=== PATIENT | male | born 1965 | race Caucasian/White ===

== ENCOUNTER 2021-01-14 08:34 | Inpatient (IN) ==
[2021-01-14] MEDS ORDERED: Naloxone 0.4 MG/ML INJ IVP PRN (11:13)
[2021-01-14] MEDS ORDERED: *HR* HYDROcodone/Acet 5/325 mg TABLET PO ONE (11:57)
[2021-01-14] MEDS ORDERED: *HR* HYDROcodone/Acet 5/325 mg TABLET PO PRN (12:08)
[2021-01-14] MEDS ORDERED: Ondansetron 4 MG/2 ML VIAL IVP PRN (12:09)
[2021-01-14] MEDS: Acetaminophen 325 MG TABLET PO PRN (19:29)
[2021-01-14] MEDS: Metoprolol 100 MG TABLET PO SCH (19:53)
[2021-01-14] MEDS: calcium polycarbophiL 625 MG TABLET PO SCH (19:54)
[2021-01-14] MEDS ORDERED: GI Cocktail 40 ML EACH PO ONE (23:28)
[2021-01-15 03:54] LABS: Basophils % 0.3 %; Eosinophils # 0.6 K/mcL (0.0-0.6); Eosinophils % 10.2 %; Hematocrit 37.8 % (37.5-50.1); Hemoglobin 12.6 g/dL (12.9-16.9); Immature Granulocytes % 0.3 % (0-4); Lymphocytes # 1.8 K/mcL (0.6-4.6); Lymphocytes % 29.1 %; Mean Corpuscular HGB Conc 33.3 g/dL (31.6-35.5); Mean Corpuscular Hemoglobin 32.1 pg (28.0-33.3); Mean Corpuscular Volume 96.4 fL (83.0-100.0); Monocytes # 0.6 K/mcL (0.0-1.3); Monocytes % 10.2 %; Neutrophils # 3.1 K/mcL (1.6-8.9); Platelet Count 230 K/mcL (140-400); Red Blood Count 3.92 M/mcL (4.19-5.50); Segmented Neutrophils % 49.9 %; White Blood Count 6.2 K/mcL (4.3-11.1)
[2021-01-15 04:14] LABS: BUN/Creatinine Ratio 12 (6-26); Blood Urea Nitrogen 11 mg/dL (6-20); Calcium 8.8 mg/dL (8.6-10.3); Carbon Dioxide 21 mEq/L (23-29); Chloride 109 mEq/L (98-107); Glucose 98 mg/dL (70-105); Osmolality,Calculated 283 (280-300); Phosphorous 2.6 mg/dL (2.7-4.5); Potassium 4.2 mEq/L (3.5-5.1); Sodium 137 mEq/L (136-145); eGFR For African Americans > 60 (> 60); eGFR For Non-African Americans > 60 (> 60)
[2021-01-15] MEDS ORDERED: lisinopriL 20 MG TABLET PO SCH (08:00)
[2021-01-15] MEDS: calcium polycarbophiL 625 MG TABLET PO SCH ×2 (09:07→20:13)
[2021-01-15] MEDS: Loratadine 10 MG TABLET PO SCH (09:07)
[2021-01-15] MEDS: Metoprolol 100 MG TABLET PO SCH ×2 (09:08→20:13)
[2021-01-15] MEDS ORDERED: 0.9 % Sodium Chloride 500 ML IV ONE (23:28)
[2021-01-15] MEDS ORDERED: 0.9 % Sodium Chloride 500 ML ONE (23:40)
[2021-01-16 02:54] LABS: Hematocrit 38.9 % (37.5-50.1); Hemoglobin 13.1 g/dL (12.9-16.9); Mean Corpuscular HGB Conc 33.7 g/dL (31.6-35.5); Mean Corpuscular Hemoglobin 31.6 pg (28.0-33.3); Mean Platelet Volume 9.8 fL (9.4-12.4); Platelet Count 239 K/mcL (140-400); Red Blood Count 4.14 M/mcL (4.19-5.50); Red Cell Distribution Width 12.9 % (11.5-14.5); White Blood Count 6.3 K/mcL (4.3-11.1)
[2021-01-16 03:11] LABS: BUN/Creatinine Ratio 15 (6-26); Blood Urea Nitrogen 13 mg/dL (6-20); Calcium 9.1 mg/dL (8.6-10.3); Carbon Dioxide 22 mEq/L (23-29); Chloride 106 mEq/L (98-107); Glucose 94 mg/dL (70-105); Osmolality,Calculated 286 (280-300); Sodium 138 mEq/L (136-145); eGFR For African Americans > 60 (> 60); eGFR For Non-African Americans > 60 (> 60)
[2021-01-16] MEDS ORDERED: 0.9 % Sodium Chloride 500 ML IV ONE (04:51)
[2021-01-16] MEDS ORDERED: 0.9 % Sodium Chloride 500 ML ONE (04:59)
[2021-01-16] MEDS: Acetaminophen 325 MG TABLET PO PRN ×2 (05:00→21:30)
[2021-01-16] MEDS ORDERED: 0.9 % Sodium Chloride 1,000 ML IVC SCH (07:45)
[2021-01-16] MEDS: Loratadine 10 MG TABLET PO SCH (09:45)
[2021-01-16] MEDS: calcium polycarbophiL 625 MG TABLET PO SCH ×2 (09:45→21:30)
[2021-01-16] MEDS: Metoprolol XL (24 HR) Succ 25 MG TAB.ER.24H PO SCH (16:02)
[2021-01-17] MEDS: Metoprolol XL (24 HR) Succ 25 MG TAB.ER.24H PO SCH (09:36)
[2021-01-17] MEDS: calcium polycarbophiL 625 MG TABLET PO SCH (09:36)
[2021-01-17] MEDS: Loratadine 10 MG TABLET PO SCH (09:36)
[2021-01-17 09:40] VITALS: BP 145/89
== END 2021-01-17 13:56 | disposition home or self-care (01) | DRG 244 ==
LOC: CDU → SUATTDRO 10:15 → 3ANU 16:22
PROVIDERS: ADMIT Internal Medicine; ATTEND Internal Medicine